=== PATIENT | male | born 1985 | race Caucasian/White ===

== ENCOUNTER 2016-10-26 23:17 | Emergency (ER) | payer OTHER ==
[~2016-10-26] VITALS: Ht 185.4 cm; Wt 89.1 kg
[2016-10-26 23:30] VITALS: BP 151/100
[2016-10-27] MEDS ORDERED: IBUPROFEN 600 MG TAB PO ONE (02:30)
== END 2016-10-27 02:50 | disposition home or self-care (01) ==
LOC: ER 23:17
DX: R07.89 Other chest pain (principal); F17.210 Nicotine dependence, cigarettes, uncomplicated; Y08.89XA Assault by other specified means, initial encounter; Y93.89 Activity, other specified; Y99.8 Other external cause status; Y92.89 Other specified places as the place of occurrence of the external cause
CPT/HCPCS: 71020

== ENCOUNTER 2017-04-29 16:56 | Emergency (ER) | payer MEDICAID, OTHER ==
[~2017-04-29] VITALS: Ht 180.3 cm; Wt 79.4 kg
[2017-04-29 17:18] VITALS: BP 150/93
== END 2017-04-29 21:37 | disposition home or self-care (01) ==
LOC: ER 16:56 → EDBD 16:56 → ER 21:37
DX: F41.9 Anxiety disorder, unspecified (principal); R51 Headache; F32.9 Major depressive disorder, single episode, unspecified; F17.210 Nicotine dependence, cigarettes, uncomplicated